=== PATIENT | male | born 1990 | race Two or more races ===

== ENCOUNTER 2018-06-03 10:57 | Inpatient (IN) | payer MEDICAID ==
[~2018-06-03] VITALS: Ht 182.9 cm; Wt 90.9 kg
[~2018-06-03 10:57] MED LIST: BENADRYL50 MG PO; FLUVOXAMINE MA100 MG PO; GLUCOPHAGE1000 MG PO; INDERAL 40 MG T40 MG PO; LEVIMIR; NOVOLOG100 U/M1 SQ; RISPERDAL0.5 MG PO
[2018-06-03] MEDS ORDERED: MELATONIN5 M3 (11:16)
[2018-06-03] MEDS ORDERED: SEROQUEL50 MG PO (11:17)
[2018-06-03 12:52] LABS: KETONE - SERUM MODERATE mg/dL (NEGATIVE)
[2018-06-03 13:03] LABS: ALBUMIN 4.1 g/dL (3.4-5.0); ALKALINE PHOSPHATASE 68 U/L (46-116); ALT (SGPT) 18 U/L (10-68); BILIRUBIN - TOTAL 0.61 mg/dL (0.2-1.3); CALC OSMOLALITY 276 mosm/kg (275-300); CALCIUM 8.7 mg/dL (8.5-10.1); CARBON DIOXIDE 12.9 mmol/L (21.0-32.0); CHLORIDE - SERUM 95 mmol/L (98-107); GLUCOSE 370 mg/dL (74-106); SODIUM 130 mmol/L (136-145); UREA NITROGEN 15 mg/dL (7-18); eGFR NON AFRICAN AMERICAN > 90 mL/min (90-120)
[2018-06-03 13:11] LABS: BASOPHILS 0.5 % (0-2); EOSINOPHILS 9.7 % (0-7); HEMATOCRIT 46.2 % (42.0-54.0); HEMOGLOBIN 16.4 g/dL (13.5-17.5); IMMATURE GRANULOCYTES 0.3 % (0-5); LYMPHOCYTES 22.4 % (15-50); MCH 30.3 pg (26.0-34.0); MCHC 35.5 g/dL (31.0-37.0); MCV 85.2 fL (80.0-100.0); MONOCYTES 4.2 % (2-11); NEUTROPHILS 62.9 % (40-80); PLATELET COUNT 197 10x3/uL (130-400); RBC 5.42 10x6/uL (4.20-6.10); RDW 12.9 % (11.5-14.5); WBC 7.9 10x3/uL (4.8-10.8)
[2018-06-03 19:02] VITALS: BP 122/94; Ht 182.9 cm; Wt 90.9 kg
[2018-06-03 21:27] VITALS: BP 124/82
== END 2018-06-03 22:43 | disposition left against medical advice (07) | DRG 638 ==
LOC: D.ER 10:57 → D.EDHOLD 14:44 → D.M2 15:22
PROVIDERS: Family Medicine
DX: E10.65 Type 1 diabetes mellitus with hyperglycemia (principal); F84.0 Autistic disorder; F95.2 Tourette's disorder; F90.9 Attention-deficit hyperactivity disorder, unspecified type; F42.9 Obsessive-compulsive disorder, unspecified